=== PATIENT | female | born 1995 | race African-American/Black ===

== ENCOUNTER 2017-01-13 07:19 | Emergency (ER) | payer OTHER ==
[~2017-01-13] VITALS: Ht 157.5 cm; Wt 79.0 kg
[2017-01-13] MEDS ORDERED: VISCOUS LIDOCAINE 2% 15 ML UDC PO STA (09:49)
[2017-01-13] MEDS ORDERED: DICYCLOMINE 10 MG/5 ML ORAL SYR PO STA (09:49)
[2017-01-13] MEDS ORDERED: SODIUM CHLORIDE 0.9% 1,000 ML IV ONE (09:49)
[2017-01-13] MEDS ORDERED: KETOROLAC 30MG/ML VIAL IV STA (09:49)
[2017-01-13] MEDS ORDERED: MAGNESIUM/ALUMINUM HYDROXIDE/SIMETHICONE 30ML UDC PO STA (09:49)
[2017-01-13 10:10] LABS: GLUCOSE URINE NEGATIVE (NEGATIVE); KETONES URINE TRACE (NEGATIVE); LEUKOCYTE ESTERASE URINE 2+ (NEGATIVE); NITRITE URINE NEGATIVE (NEGATIVE); OCCULT BLOOD URINE 2+ (NEGATIVE); PH URINE 5.5 (4.5-8.0); PROTEIN URINE TRACE (NEGATIVE); SPECIFIC GRAVITY URINE 1.037 (1.005-1.030); UROBILINOGEN URINE 0.2 E.U./dL (0.2-1.0)
[2017-01-13 10:11] LABS: HEMATOCRIT. 40.9 % (36.0-48.0); HEMOGLOBIN. 13.7 g/dL (12.0-16.0); MEAN CORPUSCULAR VOLUME 83.6 fL (81.0-99.0); MEAN PLATELET VOLUME 8.1 fl (7.4-10.4); PLATELET 259 x1000/uL (130-400); RED BLOOD CELL COUNT 4.89 mill/uL (4.2-5.4); RED CELL DISTRIBUTION WIDTH 13.5 % (11.6-14.6)
[2017-01-13] MEDS: ONDANSETRON HCL 4MG/2ML VIAL IV STA ×2 (10:15→10:32)
[2017-01-13 10:19] LABS: INR 1.1; PROTHROMBIN TIME 11.1 sec
[2017-01-13 10:22] LABS: CLARITY URINE CLOUDY (CLEAR); COLOR URINE YELLOW (YELLOW)
[2017-01-13 10:26] LABS: CARBON DIOXIDE 22 mEq/L (21-32); CHLORIDE 107 mEq/L (98-107)
[2017-01-13 10:59] VITALS: BP 121/71
[2017-01-13 11:07] LABS: PLATELET ESTIMATE NORMAL
== END 2017-01-13 12:11 | disposition home or self-care (01) ==
LOC: ER 08:17
DX: N39.0 Urinary tract infection, site not specified (principal); R19.7 Diarrhea, unspecified; R11.2 Nausea with vomiting, unspecified
CPT/HCPCS: 36415; 80053; 81001; 83690; 85025; 85610; 96361; 96374; 99285; J1885; J7030; Z7610; J2405